=== PATIENT | male | born 1990 | race Caucasian/White ===

== ENCOUNTER 2020-07-23 15:50 | Emergency (ER) | payer BC, SELFPAY ==
[2020-07-23] VITALS (9 sets, daily range): BP systolic 111–173; BP diastolic 63–97; PULSE 56–75; RESP 18; TEMP 36.6; O2SAT 97–100
[2020-07-23] MEDS: KETOROLAC 60 MG/2 ML VIAL 15 MG IV (17:02)
[2020-07-23] MEDS: METOCLOPRAMIDE 10 MG/2 ML INJ IV (17:02)
[2020-07-23] MEDS: diphenhydrAMINE 50 MG/ML VIAL 25 MG IV (17:02)
[2020-07-23] MEDS: SODIUM CHLORIDE 0.9% 1,000 ML 1000 ML IV (17:02)
[2020-07-23 17:35] LABS: Add Manual Diff / Slide Review NO; Basophils Absolute Auto 0 /uL (0-100); Basophils Percent Auto 0.4 % (0-2); Eosinophils Absolute Auto 200 /uL (0-450); Eosinophils Percent Auto 2.8 % (2-4); Hematocrit 44.2 % (41-53); Hemoglobin 15.3 g/dL (13.5-17.5); Lymphocytes Absolute Auto 2500 /uL (1100-4500); Lymphocytes Percent Auto 36.3 % (25-40); Mean Corpuscular HGB Conc 34.7 % (30-36); Mean Corpuscular Hemoglobin 28.6 PG (26-34); Mean Corpuscular Volume 82.4 fL (80-100); Monocytes Absolute Auto 700 /uL (0-900); Monocytes Percent Auto 9.6 % (3-14); Neutrophils Absolute Auto 3500 /uL (1500-7000); Neutrophils Percent Auto 50.9 % (50-75); Platelet Count 194 X10^3/uL (150-400); Red Blood Cell Count 5.36 X10^6/uL (4.5-5.9); Red Cell Distribution Width 13.6 % (11.6-14.8); White Blood Cell Count 6.9 X10^3/uL (4.5-11.0)
[2020-07-23 17:39] LABS: BUN Creatinine Ratio 13.6 (6-22); Blood Urea Nitrogen 14 mg/dL (9-20); Calcium 9.7 mg/dL (8.4-10.2); Carbon Dioxide 27 mmol/L (22-32); Chloride 100 mmol/L (98-107); Estimated Glomerular Filt Rate > 60.0 mL/min (>60); Glucose 95 mg/dL (70-100); HEMOLYSIS < 15 (0-50); Sodium 138 mmol/L (137-145)
--- NOTE | 2020-07-23 18:10 | ED_ITS ---
HPI - Headache <BRANDEN Rojas - Last Filed: 07/23/20 20:14> General Chief Complaint: Headache Stated Complaint: headaches and nausea Time Seen by Provider: 07/23/20 16:06 Source: patient Mode of arrival: Ambulatory Limitations: no limitations History of Present Illness HPI Narrative: This is a 29-year-old male, nonsmoker, who has past medical history significant for concussion which occurred 4-5 weeks ago when he had whiplash injuries during skiing with pinwheel injury with chief complain of right-sided headache behind the eye and pain radiating from posterior head to the forehead. He has been nauseated. Patient is currently following up with physical therapy treatment for vertigo-like symptoms since the injury. He was followed up with his primary care physician more than once and had negative head CT results. Patient reports he had some musculoskeletal like some neck discomfort in anterior and posterior neck. He denies speech difficulty, unilateral weakness, facial droops. He reports some blurred vision with the headache. Patient lives [facility] in [place] and is visiting significant other's family member in [facility]. Patient traveled via [place] 2 days ago and had experience headache, nausea since yesterday. Patient states concussion syndrome with difficulty with concentration, emotional changes, insomnia, headache, dizziness, nausea have been slowly improving since the initial concussion. Patient denies personal history of aneurysm or family history of aneurysm or bleeding disorders. Patient rates his discomfort as 3 to 4/10 and describes as tension. 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 Related Data Home Medications Medication Instructions Recorded Confirmed methylphenidate HCl 36 mg PO QAM 07/23/20 07/23/20 ondansetron [Zofran ODT] 4 mg PO Q8H PRN 07/23/20 07/23/20 Allergies Allergy/AdvReac Type Severity Reaction Status Date / Time No Known Drug Allergies Allergy Verified 07/23/20 16:04 Review of Systems <BRANDEN Rojas - Last Filed: 07/23/20 20:14> Review of Systems Narrative: General: Denies fever, chills, fatigue, malaise, sweats. HEENT: See HPI Respiratory: Denies dyspnea, cough, wheezing, hemoptysis, sputum. Cardiovascular: Denies chest pain, palpitations, orthopnea, edema. Gastrointestinal: Denies (+) nausea, vomiting, abdominal pain, diarrhea, constipation, melena. : Denies dysuria, frequency, incontinence, hematuria, urinary retention. Musculoskeletal: See HPI Skin: Denies rash, skin lesions, or other. Neurologic: HPI Psychiatric: See HPI 12-point review of systems is negative except for those stated above. Patient History <BRANDEN Rojas - Last Filed: 07/23/20 20:14> Medical History Concussion Social History Smoking Status: Never smoker Smoking Status: Never smoker alcohol intake frequency: 0-2 drinks per day Substance Use Type: does not use Exam <BRANDEN Rojas - Last Filed: 07/23/20 20:14> Narrative Exam Narrative: GEN: Alert, oriented x 3, well appearing and nourished, and in no acute distress. Head: Normal cephalic, atraumatic. No scalp or temporal tenderness, palpable mass or rash. EYES: Pupils are equal, round, and reactive to light and accommodation. Extraocular muscles are intact bilaterally. There is no subconjunctival hemorrhage, exudate and sclera non-icteric. ENT: Bilateral auditory canals and tympanic membranes clear without drainage. Hearing grossly intact. Nose without bleeding, purulent discharge, septal hematoma or deviation. Mucous membrane moist, no mucosal lesion. Throat without erythema, tonsillar hypertrophy or exudate. Uvula in midline, airway patent. Neck: Trachea in midline. No JVD, non-tender without lymphadenopathy. No masses or thyroid megaly. Supple, non-tender and no meningeal signs. CARDIAC: Normal regular rate and rhythm without murmurs, gallops, or rubs. No chest wall tenderness. No peripheral edema, cyanosis or pallor. Capillary refill is less than 2 seconds. No carotid bruits. RESPIRATORY: Lungs are cleat to auscultate bilaterally. No cough, wheezes, rales, or rhonchi. No stridor, respiratory distress, increase work of breathing, or accessary muscle used. ABD: Abdomen soft, nontender and non-distended. No guarding or rebound tenderness to palpate. Bowel sounds are normal in all 4 quadrants. There is no palpable masses or organomegaly. EXT: Full painless ROM of all extremities with no loss of sensation, strength, effusion or edema. SKIN: Warm, dry, normal color for patient. No erythema, lesions or rash. BACK: Nontender without deformity or crepitance. No flank tenderness. NEUROLOGICAL: Alert and oriented to place, time and person. No facial droops, dysphasia. CN II-XII intact. Strength and sensation symmetric and intact throughout. Cerebellar testing normal. PSYCHIATRIC: Good judgement and reason, without hallucinations, abnormal affect or abnormal behaviors during the examination. Patient is not suicidal. Initial Vital Signs Initial Vital Signs: Vital Signs Temperature 97.9 F 07/23/20 16:00 Pulse Rate 73 07/23/20 16:00 Respiratory Rate 18 07/23/20 16:00 Blood Pressure 140/92 H 07/23/20 16:00 Pulse Oximetry 97 07/23/20 16:00 <Dionte Clemons DO - Last Filed: 07/26/20 20:18> Initial Vital Signs Initial Vital Signs: Vital Signs Temperature 97.9 F 07/23/20 16:00 Pulse Rate 73 07/23/20 16:00 Respiratory Rate 18 07/23/20 16:00 Blood Pressure 140/92 H 07/23/20 16:00 Pulse Oximetry 97 07/23/20 16:00 Scores <BRANDEN Rojas - Last Filed: 07/23/20 20:14> GCS [place] coma scale eye opening: Spontaneous [place] coma scale verbal response: Orientated [place] coma scale motor response: Obey commands [place] coma scale total score: 15 qSOFA Altered Mental Status (GCS <15): No Respiratory rate greater than/equal to 22: No Systolic blood pressure less than or equal to 100: No qSOFA Total: 0 0-1 Not High Risk 1-3 High risk Course <BRANDEN Rojas - Last Filed: 07/23/20 20:14> Orders Ordered: Discontinued Medications Acetaminophen (Acetaminophen 325 Mg Tablet) 650 mg PO NOW ONE Stop: 07/23/20 18:29 Last Admin: 07/23/20 18:33 Dose: 650 mg Documented by: CAROLINE Diphenhydramine HCl (Diphenhydramine 50 Mg/Ml Vial) 25 mg IV NOW ONE Stop: 07/23/20 16:32 Last Admin: 07/23/20 17:02 Dose: 25 mg Documented by: CAROLINE Sodium Chloride (Normal Saline 0.9%) 1,000 mls @ 1,000 mls/hr IV BOLUS ONE Stop: 07/23/20 17:30 Last Infusion: 07/23/20 18:00 Dose: 0 mls/hr Documented by: Admin: 07/23/20 17:02 Dose: 1,000 mls/hr Documented by: CAROLINE Ketorolac Tromethamine (Ketorolac 60 Mg/2 Ml Vial) 15 mg IV NOW ONE Stop: 07/23/20 16:32 Last Admin: 07/23/20 17:02 Dose: 15 mg Documented by: CAROLINE Metoclopramide HCl (Metoclopramide 10 Mg/2 Ml Inj) 10 mg IV NOW ONE Stop: 07/23/20 16:32 Last Admin: 07/23/20 17:02 Dose: 10 mg Documented by: CAROLINE Ondansetron HCl (Ondansetron 4 Mg/2 Ml Inj) 4 mg IV PRN PRN PRN Reason: Nausea Last Admin: 07/23/20 18:33 Dose: 4 mg Documented by: CAROLINE Reevaluation(s) Reevaluation #1: Initially patient reports headache and nausea improved when woke from resting. Provided apple juice for po challange. Before dc to home, patient reports headache and nausea not completely resolved. Offered Tylenol and Zofran IV for his remaining symptoms. Time: 18:30 Vital Signs Vital signs: Vital Signs - 8 hr 07/23/20 16:00 07/23/20 16:12 07/23/20 16:30 Temperature 97.9 F Pulse Rate 73 75 71 Respiratory Rate 18 Blood Pressure 140/92 H Pulse Oximetry 97 98 97 07/23/20 17:00 07/23/20 17:13 07/23/20 17:30 Temperature Pulse Rate 62 58 L 56 L Respiratory Rate Blood Pressure 115/72 113/63 Pulse Oximetry 97 100 97 07/23/20 18:00 07/23/20 18:30 07/23/20 18:53 Temperature Pulse Rate 63 63 69 Respiratory Rate Blood Pressure 116/71 111/63 112/76 Pulse Oximetry 100 99 98 <Dionte Lanker, DO - Last Filed: 07/26/20 20:18> Orders Ordered: Discontinued Medications Acetaminophen (Acetaminophen 325 Mg Tablet) 650 mg PO NOW ONE Stop: 07/23/20 18:29 Last Admin: 07/23/20 18:33 Dose: 650 mg Documented by: CAROLINE Diphenhydramine HCl (Diphenhydramine 50 Mg/Ml Vial) 25 mg IV NOW ONE Stop: 07/23/20 16:32 Last Admin: 07/23/20 17:02 Dose: 25 mg Documented by: CAROLINE Sodium Chloride (Normal Saline 0.9%) 1,000 mls @ 1,000 mls/hr IV BOLUS ONE Stop: 07/23/20 17:30 Last Infusion: 07/23/20 18:00 Dose: 0 mls/hr Documented by: Admin: 07/23/20 17:02 Dose: 1,000 mls/hr Documented by: CAROLINE Ketorolac Tromethamine (Ketorolac 60 Mg/2 Ml Vial) 15 mg IV NOW ONE Stop: 07/23/20 16:32 Last Admin: 07/23/20 17:02 Dose: 15 mg Documented by: CAROLINE Metoclopramide HCl (Metoclopramide 10 Mg/2 Ml Inj) 10 mg IV NOW ONE Stop: 07/23/20 16:32 Last Admin: 07/23/20 17:02 Dose: 10 mg Documented by: CAROLINE Ondansetron HCl (Ondansetron 4 Mg/2 Ml Inj) 4 mg IV PRN PRN PRN Reason: Nausea Last Admin: 07/23/20 18:33 Dose: 4 mg Documented by: CAROLINE Vital Signs Vital signs: Vital Signs - 8 hr 07/23/20 16:00 07/23/20 16:12 07/23/20 16:30 Temperature 97.9 F Pulse Rate 73 75 71 Respiratory Rate 18 Blood Pressure 140/92 H Pulse Oximetry 97 98 97 07/23/20 17:00 07/23/20 17:13 07/23/20 17:30 Temperature Pulse Rate 62 58 L 56 L Respiratory Rate Blood Pressure 115/72 113/63 Pulse Oximetry 97 100 97 07/23/20 18:00 07/23/20 18:30 07/23/20 18:53 Temperature Pulse Rate 63 63 69 Respiratory Rate Blood Pressure 116/71 111/63 112/76 Pulse Oximetry 100 99 98 MDM - Headache <KIMBERLY RojasP - Last Filed: 07/23/20 20:14> Differential Diagnosis Differential diagnosis: Likely migraine, tension headache and postconcussion syndrome Medical Records Attestation: I reviewed the patient's medical records. Lab Data Attestation: I reviewed the patient's lab results. Result diagrams: 07/23/20 16:55 07/23/20 16:55 Labs: Lab Results 07/23/20 07/23/20 Range/Units 16:55 16:55 WBC 6.9 (4.5-11.0) X10^3/uL RBC 5.36 (4.5-5.9) X10^6/uL Hgb 15.3 (13.5-17.5) g/dL Hct 44.2 (41-53) % MCV 82.4 (80-100) fL MCH 28.6 (26-34) PG MCHC 34.7 (30-36) % RDW 13.6 (11.6-14.8) % Plt Count 194 (150-400) X10^3/uL Neut % (Auto) 50.9 (50-75) % Lymph % (Auto) 36.3 (25-40) % Island % (Auto) 9.6 (3-14) % Eos % (Auto) 2.8 (2-4) % Baso % (Auto) 0.4 (0-2) % Neut # (Auto) 3500 (0442-2663) /uL Lymph # (Auto) 2500 (6080-4437) /uL Island # (Auto) 700 (0-900) /uL Eos # (Auto) 200 (0-450) /uL Baso # (Auto) 0 (0-100) /uL Sodium 138 (137-145) mmol/L Potassium 4.0 (3.4-5.1) mmol/L Chloride 100 (98-107) mmol/L Carbon Dioxide 27 (22-32) mmol/L BUN 14 (9-20) mg/dL Creatinine 1.03 (0.66-1.25) mg/dL Estimated GFR > 60.0 (>60) mL/min BUN/Creatinine Ratio 13.6 (6-22) Glucose 95 (70-100) mg/dL Calcium 9.7 (8.4-10.2) mg/dL MDM Narrative Medical decision making narrative: This is a 29-year-old male who is visiting from [place] in [place] presents to ED with significant other with chief complain of right-sided headache with nausea since yesterday after travel to [place] by [facility]. Patient has suffered concussion last 4-5 weeks and was evaluated by PCP and had CT scan done with negative findings and currently treated by physical therapy for postconcussion syndrome with nausea, vomiting, dizziness. Patient reports his symptoms are marginally improving day by day until yesterday. Patient's physical exam unremarkable for neurological exam. Patient has equal bilateral strength without loss of sensation. There is no facial droops or vision change and no dysphagia. Thought about carotid artery dissection but it is unlikely since patient had initial injury more than a month ago without other neurological deficit except concussion syndrome. Screening labs done with CBC and chemistry which were all unremarkable. In shared decision making, offered patient with IV fluid, Toradol, Benadryl and Reglan to treat migraine-like headache and he elected to this treatment. Patient felt improved after he was able to rest after the treatment. However, when he was ready to be discharged, he states headache and nausea not completely resolved. He was given Tylenol and IV Zofran with some improvement without resolution. Advised patient to go home and rest tonight. We discussed strict return precautions and he verbalized understanding in agreement with the treatment plan and advised to follow-up with PCP when he returns to home and continue with physical therapy and to avoid another head injury. Patient afebrile without tachycardia, tachypnea and within normotensive in ED. <Dionte Clemons, DO - Last Filed: 07/26/20 20:18> Lab Data Labs: Lab Results 07/23/20 07/23/20 Range/Units 16:55 16:55 WBC 6.9 (4.5-11.0) X10^3/uL RBC 5.36 (4.5-5.9) X10^6/uL Hgb 15.3 (13.5-17.5) g/dL Hct 44.2 (41-53) % MCV 82.4 (80-100) fL MCH 28.6 (26-34) PG MCHC 34.7 (30-36) % RDW 13.6 (11.6-14.8) % Plt Count 194 (150-400) X10^3/uL Neut % (Auto) 50.9 (50-75) % Lymph % (Auto) 36.3 (25-40) % Island % (Auto) 9.6 (3-14) % Eos % (Auto) 2.8 (2-4) % Baso % (Auto) 0.4 (0-2) % Neut # (Auto) 3500 (4355-7621) /uL Lymph # (Auto) 2500 (0829-7337) /uL Island # (Auto) 700 (0-900) /uL Eos # (Auto) 200 (0-450) /uL Baso # (Auto) 0 (0-100) /uL Sodium 138 (137-145) mmol/L Potassium 4.0 (3.4-5.1) mmol/L Chloride 100 (98-107) mmol/L Carbon Dioxide 27 (22-32) mmol/L BUN 14 (9-20) mg/dL Creatinine 1.03 (0.66-1.25) mg/dL Estimated GFR > 60.0 (>60) mL/min BUN/Creatinine Ratio 13.6 (6-22) Glucose 95 (70-100) mg/dL Calcium 9.7 (8.4-10.2) mg/dL Discharge Plan Departure Patient Disposition: Home Clinical Impression: Headache Qualifiers: Headache type: post-traumatic Headache chronicity pattern: acute headache Intractability: not intractable Qualified Code(s): G44.319 - Acute post- traumatic headache, not intractable Instructions: DI for Headache Activity Restrictions/Additional Instructions: You have been diagnosed with [headache similar to migraine headache. You were treated with IV fluid, Toradol, Benadryl and Reglan in ED with improvement. Neurological exam normal]. What to do: *Take your medications as directed. You can continue to use Zofran as needed for nausea. You can use [id number] Tylenol and or Motrin as needed for discomfort. Hydrate adequately. *Follow up with your primary care provider in 2-3 days, call for an appointment when you return to home in [place]. Let them know you were seen in the ED and that we asked you to be seen in follow up. *Return to ED if you have any new, worsening, or concerning symptoms, such as [facial droops, speech difficulty, weakness to 1 side of body, vision change, worsening pain, chest pain, breathing difficulty, unable to tolerate fluids, fever, unusual rashes or any acute concerns]. Prescriptions: No Action ondansetron [Zofran ODT] 4 mg Tablet,Disintegrating 4 mg PO Q8H PRN (Reason: Nausea) RF: 0 methylphenidate HCl 36 mg Tablet Extended Release 24hr 36 mg PO QAM RF: 0 <Dionte Clemons, DO - Last Filed: 07/26/20 20:18> Cosign ED Attending Cosignature Attestation: Dr Clemons Co-Sign Statement: I was available for consultation during this patient's emergency department visit. This chart is signed by myself for administrative purposes only. I did not have direct contact with this patient during this visit. They were seen independently by the APC.
[2020-07-23] MEDS: ONDANSETRON 4 MG/2 ML INJ IV (18:33)
[2020-07-23] MEDS: ACETAMINOPHEN 325 MG TABLET 650 MG PO (18:33)
== END 2020-07-23 19:19 | disposition home or self-care (01) ==
PROVIDERS: Emergency Provider Nurse Practitioner Family
DX: G44.319 Acute post-traumatic headache, not intractable (principal); R11.0 Nausea
CPT/HCPCS: 80048; 85025; 96361; 96374; 96375; 99284; J1200; J1885; J2405; J2765